=== PATIENT | male | born 1980 | race Caucasian/White ===

== ENCOUNTER 2016-09-12 16:06 | Emergency (ER) | payer MEDICAID ==
[~2016-09-12] VITALS: Ht 180.3 cm; Wt 117.9 kg
[~2016-09-12 16:06] MED LIST: KEFLEX500 MG PO; MOTRIN800 MG PO
[2016-09-12] MEDS ORDERED: GABAPENTIN100 M2 PO (16:13)
[2016-09-12] MEDS ORDERED: LAMICTAL200 MG PO (16:13)
[2016-09-12] MEDS ORDERED: CEPHALEXIN500 M1 PO (17:31)
== END 2016-09-12 17:37 | disposition home or self-care (01) ==
LOC: ED 16:06
DX: S61.215A Laceration without foreign body of left ring finger without damage to nail, initial encounter (principal); Z90.49 Acquired absence of other specified parts of digestive tract; X58.XXXA Exposure to other specified factors, initial encounter; Y93.89 Activity, other specified; Y92.89 Other specified places as the place of occurrence of the external cause; Y99.0 Civilian activity done for income or pay

== ENCOUNTER 2016-09-16 09:25 | Emergency (ER) | payer OTHER ==
[~2016-09-16] VITALS: Ht 652.7 cm
[~2016-09-16 09:25] MED LIST changes: +CEPHALEXIN500 M1 PO; +GABAPENTIN100 M2 PO; +LAMICTAL200 MG PO
[2016-09-16 10:46] LABS: BASO # 0.1 10*3/uL (0.0-0.1); BASO % 0.9 % (0.0-1.0); EOS % 0.1 % (1.0-4.0); HEMATOCRIT 44.9 % (42.0-52.0); HEMOGLOBIN 15.2 g/dl (14.0-18.0); LYMPH # 1.6 10*3/uL (1.3-4.4); LYMPH % 20.2 % (27.0-41.0); MEAN CELL VOLUME 87.4 fl (80.0-94.0); MEAN CORPUSCULAR HGB 29.6 pg (27.0-31.0); MEAN CORPUSCULAR HGB CONC 33.9 g/dl (33.0-37.0); MEAN PLATELET VOLUME 9.7 fl (9.6-12.3); MONO # 0.5 10*3/uL (0.1-1.0); MONO % 6.2 % (3.0-9.0); NEUT # 5.8 10*3/uL (2.3-7.9); NEUT % 72.2 % (47.0-73.0); PLATELET COUNT AUTOMATED 336 10*3/uL (130-400); RED BLOOD COUNT 5.14 10*6/uL (4.50-5.90); RED CELL DISTRI WIDTH 13.1 % (0-14.5)
[2016-09-16 10:47] LABS: BUN 19 mg/dl (7-24); CARBON DIOXIDE 27 mmol/L (21-32); CHLORIDE 105 mmol/L (98-107); EST GLOM FILT AFRICAN AMERICAN > 60 ml/min; GLUCOSE 144 mg/dL (65-99); SODIUM 142 mmol/L (136-145)
[2016-09-16] MEDS ORDERED: ATIVAN1 MG PO (11:44)
== END 2016-09-16 12:09 | disposition home or self-care (01) ==
LOC: ED 09:25
PROVIDERS: Emergency Medicine
DX: F41.9 Anxiety disorder, unspecified (principal); F19.10 Other psychoactive substance abuse, uncomplicated; Z90.49 Acquired absence of other specified parts of digestive tract; Z79.899 Other long term (current) drug therapy

== ENCOUNTER → 2017-01-31 | Outpatient (CLI) | payer OTHER ==
[~2017-01-31] MED LIST changes: +ATIVAN1 MG PO
== END | disposition home or self-care (01) ==
LOC: RESCLI 00:54
DX: F98.8 Other specified behavioral and emotional disorders with onset usually occurring in childhood and adolescence (principal); M25.562 Pain in left knee; F31.31 Bipolar disorder, current episode depressed, mild; E66.09 Other obesity due to excess calories; Z90.49 Acquired absence of other specified parts of digestive tract

== ENCOUNTER → 2017-02-14 | Outpatient (CLI) | payer OTHER | END | disposition home or self-care (01) | LOC: RESCLI 01:00 | DX: E78.2 Mixed hyperlipidemia (principal); M25.562 Pain in left knee; E66.09 Other obesity due to excess calories ==

== ENCOUNTER → 2017-04-19 | Outpatient (CLI) | payer OTHER | END | disposition home or self-care (01) | LOC: MRI 13:53 | DX: S83.512A Sprain of anterior cruciate ligament of left knee, initial encounter (principal); S83.232A Complex tear of medial meniscus, current injury, left knee, initial encounter; X58.XXXA Exposure to other specified factors, initial encounter; Y93.89 Activity, other specified; Y92.89 Other specified places as the place of occurrence of the external cause; Y99.8 Other external cause status ==

== ENCOUNTER 2021-08-07 12:37 | Emergency (ER) | payer OTHER | END 2021-08-07 15:01 | disposition home or self-care (01) | LOC: ED 12:37 | DX: S61.021A Laceration with foreign body of right thumb without damage to nail, initial encounter (principal); W45.8XXA Other foreign body or object entering through skin, initial encounter; Y93.89 Activity, other specified; Y92.89 Other specified places as the place of occurrence of the external cause; Y99.8 Other external cause status ==